=== PATIENT | male | born 1955 | race Caucasian/White ===

== ENCOUNTER 2019-02-25 14:55 | Observation (INO) | payer SELFPAY ==
--- NOTE | 2019-02-25 15:03 | EDM.PDOC ---
ED HPI GENERAL MEDICAL PROBLEM - General Chief Complaint: Respiratory Problem Stated Complaint: COUGHING UP BLOOD Time Seen by Provider: 02/25/19 14:56 Source of Information: Reports: Patient History Limitations: Reports: No Limitations - History of Present Illness INITIAL COMMENTS - FREE TEXT/NARRATIVE: History of present illness: []Patient has been coughing up blood in the morning for the last 4 days. Patient drove from [place] 2 months ago and not had any recent illnesses, chest pain, fevers or chills. He has had some episodes of shortness of breath. Patient was seen in clinic by Dr. Hamilton today and had labs and a chest x-ray done. Ordered a d-dimer which was positive. He then referred patient to the ER for further workup. Review of systems: As per history of present illness and below otherwise all systems reviewed and negative. Past medical history: As per history of present illness and as reviewed below otherwise noncontributory. Surgical history: As per history of present illness and as reviewed below otherwise noncontributory. Social history: No reported history of drug or alcohol abuse. Family history: As per history of present illness and as reviewed below otherwise noncontributory. Physical exam: General: Well developed, well nourished in NAD HEENT: Atraumatic, normocephalic, pupils reactive, negative for conjunctival pallor or scleral icterus, mucous membranes moist, throat clear, neck supple, nontender, trachea midline. Lungs: Clear to auscultation, breath sounds equal bilaterally, chest nontender. Heart: S1S2, regular, negative for clicks, rubs, or JVD. Abdomen: NABS, Soft, nondistended, nontender. Negative for masses or hepatosplenomegaly. Negative for costovertebral tenderness. Pelvis: Stable nontender. Genitourinary: Deferred. Rectal: Deferred. Extremities: Atraumatic, negative for cords or calf pain. Neurovascular unremarkable. Neuro: Awake, alert, oriented. Cranial nerves II through XII unremarkable. Cerebellum unremarkable. Motor and sensory unremarkable throughout. Exam nonfocal. Skin:warm and dry Diagnostics: Vital signs stable, CT angiogram of chest Therapeutics: Hydrated normal saline ED Course: Consulted Dr. Graham hospitalist mergers and acquisitions associate who initially recommended Lovenox and he will admit as observation. Dr. mclean to come to the ER and evaluate patient at bedside and decided to send him home on all Eliquis Impression: Pulmonary embolus right side with no pleural effusion and incidental cholelithiasis Prescriptions: Eliquis Plan: Follow-up PMD Definitive disposition and diagnosis as appropriate pending reevaluation and review of above. - Related Data Allergies Allergy/AdvReac Type Severity Reaction Status Date / Time No Known Allergies Allergy Verified 02/25/19 15:03 Home Meds: Home Meds Acyclovir [Zovirax] 1 tab PO ASDIRECTED PRN 06/13/14 [History] Gemfibrozil [Lopid] 600 mg PO DAILY 06/13/14 [History] Omeprazole [priLOSEC OTC] 20 mg PO BID 06/13/14 [History] Simvastatin [Zocor] 80 mg PO DAILY 06/13/14 [History] Apixaban [Eliquis] 5 mg PO BID #60 tablet 02/25/19 [Rx] ED ROS GENERAL - Review of Systems Review Of Systems: ROS reveals no pertinent complaints other than HPI. ED EXAM, GENERAL - Physical Exam Exam: See Below Course - Vital Signs Last Recorded V/S: Last Vital Signs Temp 97.2 F 02/25/19 15:03 Pulse 79 02/25/19 17:41 Resp 18 02/25/19 15:03 BP 150/89 H 02/25/19 17:41 Pulse Ox 96 02/25/19 17:41 - Orders/Labs/Meds Orders: Active Orders 24 hr Category Date Time Status Patient Status [ADT] Stat ADT 02/25/19 16:34 Active Sodium Chloride 0.9% [Saline Flush] Med 02/25/19 15:10 Active 10 ml FLUSH ASDIRECTED PRN Sodium Chloride 0.9% [Saline Flush] Med 02/25/19 15:10 Active 2.5 ml FLUSH ASDIRECTED PRN Saline Lock Insert [OM.PC] Stat Oth 02/25/19 15:10 Ordered Medication Orders Acetaminophen (Tylenol) 650 mg PO Q4H PRN PRN Reason: Pain (Mild 1-3)/fever Acyclovir (Zovirax) 200 mg PO ASDIRECTED PRN PRN Reason: Inflammation Albuterol/Ipratropium (Duoneb 3.0-0.5 Mg/3 Ml) 3 ml NEB Q4HRRT PRN PRN Reason: Shortness Of Breath/wheezing Docusate Sodium (Colace) 100 mg PO BID PRN PRN Reason: Constipation Enoxaparin Sodium (Lovenox) 75 mg 1 mg/kg (75 mg) SUBCUT BID BLU Non-Formulary Medication (Omeprazole [Prilosec Otc]) 20 mg PO BID BLU Non-Formulary Medication (Simvastatin [Zocor]) 80 mg PO DAILY BLU Ondansetron HCl (Zofran Odt) 4 mg PO Q6H PRN PRN Reason: nausea, able to take PO Oxycodone HCl (Oxycodone) 5 mg PO Q4H PRN PRN Reason: Pain (moderate 4-6) Sodium Chloride (Saline Flush) 10 ml FLUSH ASDIRECTED PRN PRN Reason: Keep Vein Open Sodium Chloride (Saline Flush) 2.5 ml FLUSH ASDIRECTED PRN PRN Reason: Keep Vein Open Temazepam (Restoril) 15 mg PO BEDTIME PRN PRN Reason: Sleep Meds: Medications Generic Name Dose Route Start Last Admin Trade Name Freq PRN Reason Stop Dose Admin Acetaminophen 650 mg 02/25/19 16:53 Tylenol PO Q4H PRN Pain (Mild 1-3)/fever Acyclovir 200 mg 02/25/19 16:57 Zovirax PO ASDIRECTED PRN Inflammation Albuterol/Ipratropium 3 ml 02/25/19 16:53 Duoneb 3.0-0.5 Mg/3 Ml NEB Q4HRRT PRN Shortness Of Breath/wheezing Docusate Sodium 100 mg 02/25/19 16:53 Colace PO BID PRN Constipation Enoxaparin Sodium 75 mg 02/25/19 21:00 Lovenox 1 mg/kg (75 mg) SUBCUT BID BLU Non-Formulary Medication 20 mg 02/25/19 21:00 Omeprazole [Prilosec Otc] PO BID BLU Non-Formulary Medication 80 mg 02/26/19 09:00 Simvastatin [Zocor] PO DAILY BLU Ondansetron HCl 4 mg 02/25/19 16:53 Zofran Odt PO Q6H PRN nausea, able to take PO Oxycodone HCl 5 mg 02/25/19 16:53 Oxycodone PO Q4H PRN Pain (moderate 4-6) Sodium Chloride 10 ml 02/25/19 15:10 Saline Flush FLUSH ASDIRECTED PRN Keep Vein Open Sodium Chloride 2.5 ml 02/25/19 15:10 Saline Flush FLUSH ASDIRECTED PRN Keep Vein Open Temazepam 15 mg 02/25/19 16:53 Restoril PO BEDTIME PRN Sleep Discontinued Medications Generic Name Dose Route Start Last Admin Trade Name Freq PRN Reason Stop Dose Admin Enoxaparin Sodium 73 mg 02/25/19 16:35 02/25/19 16:44 Lovenox SUBCUT 02/25/19 16:36 73 mg ONETIME ONE Administration Sodium Chloride 1,000 mls @ 999 mls/hr 02/25/19 15:13 02/25/19 16:04 Normal Saline IV 02/25/19 16:13 999 mls/hr .Bolus ONE Administration Iopamidol 50 ml 02/25/19 15:56 02/25/19 15:57 Isovue Multipack-370 (76%) IVPUSH 02/25/19 15:57 50 ml ONETIME ONE Administration Departure - Departure Time of Disposition: 16:37 Disposition: Home, Self-Care 01 Condition: Good Clinical Impression: Pulmonary embolus Qualifiers: Pulmonary embolism type: unspecified Chronicity: unspecified Acute cor pulmonale presence: without acute cor pulmonale Qualified Code(s): I26.99 - Other pulmonary embolism without acute cor pulmonale - Discharge Information *PRESCRIPTION DRUG MONITORING PROGRAM REVIEWED*: No *COPY OF PRESCRIPTION DRUG MONITORING REPORT IN PATIENT DALY: No - My Orders Last 24 Hours: My Active Orders 02/25/19 15:10 Sodium Chloride 0.9% [Saline Flush] 10 ml FLUSH ASDIRECTED PRN Sodium Chloride 0.9% [Saline Flush] 2.5 ml FLUSH ASDIRECTED PRN Saline Lock Insert [OM.PC] Stat 02/25/19 16:34 Patient Status [ADT] Stat - Assessment/Plan Last 24 Hours: My Active Orders 02/25/19 15:10 Sodium Chloride 0.9% [Saline Flush] 10 ml FLUSH ASDIRECTED PRN Sodium Chloride 0.9% [Saline Flush] 2.5 ml FLUSH ASDIRECTED PRN Saline Lock Insert [OM.PC] Stat 02/25/19 16:34 Patient Status [ADT] Stat
[2019-02-25] MEDS ORDERED: Sodium Chloride 0.9% 2.5 ML Syringe FLUSH PRN (15:10)
[2019-02-25] MEDS ORDERED: Sodium Chloride 0.9% 10 ML Syringe FLUSH PRN (15:10)
[2019-02-25] MEDS ORDERED: Sodium Chloride 0.9% 1,000 ML IV ONE (15:13)
[2019-02-25] MEDS ORDERED: Iopamidol 755 MG/ML 500 ML Multipack Bottle IVPUSH ONE (15:56)
--- NOTE | 2019-02-25 16:15 | CT ---
EXAMINATION: CTA chest HISTORY: Pain COMPARISON: None TECHNIQUE: Axial CT imaging obtained through the chest following the administration of 50 mL of Isovue-370 left antecubital fossa. Coronal and sagittal reconstructions obtained. FINDINGS: Small right pleural effusion. There is a small area of consolidation within the right lung base. Several small segmental pulmonary emboli noted within the right lower and right upper lobes. The heart is normal in size without a pericardial effusion. The thoracic aorta is normal in caliber. Coronary artery calcifications are noted. No mediastinal, hilar, or axillary lymphadenopathy. Central airways are clear. Cholelithiasis. Visualized osseous structures appear normal. IMPRESSION: 1. Several small segmental right-sided pulmonary emboli with consolidation within the right lung base which may represent a small infarct. 2. Small right pleural effusion. 3. Cholelithiasis.
[2019-02-25] MEDS ORDERED: Enoxaparin 100 MG/1 ML Syringe SUBCUT ONE (16:35)
[2019-02-25] MEDS ORDERED: Acetaminophen 325 MG Tab PO PRN (16:53)
[2019-02-25] MEDS ORDERED: Albuterol/Ipratropium 3.0-0.5 MG/3 ML Neb Soln NEB PRN (16:53)
[2019-02-25] MEDS ORDERED: oxyCODONE 5 MG Tab PO PRN (16:53)
[2019-02-25] MEDS ORDERED: Docusate Sodium 100 MG Cap PO PRN (16:53)
[2019-02-25] MEDS ORDERED: Temazepam 15 MG Cap PO PRN (16:53)
[2019-02-25] MEDS ORDERED: Ondansetron 4 MG Tab.DIS PO PRN (16:53)
[2019-02-25] MEDS ORDERED: Acyclovir 200 MG Cap PO PRN (16:57)
--- NOTE | 2019-02-25 17:01 | PCM.HP ---
H&P History of Present Illness - General Date of Service: 02/27/19 Admit Problem/Dx: Admission Diagnosis/Problem Admission Diagnosis/Problem PE, Pulmonary embolism Source of Information: Patient History Limitations: Reports: No Limitations - History of Present Illness Initial Comments - Free Text/Narative: The patient is a 63-year-old gentleman who had presented to his primary care physician's office concern for coughing up blood. The patient was seen and evaluated in the emergency department. The patient apparently had a elevated d- dimer and that was concern for pulmonary emboli. The patient has denied any shortness of breath. No recent travel. No fever or chills. The patient has been in his usual state of health. He is also wanting to go home. CT scan obtained on February 25, 2019 showed several small segmental right-sided pulmonary emboli with consolidation consistent with small infarct. Onset of Symptoms: Reports: Gradual Duration of Symptoms: Reports: Day(s): Location: Reports: Chest Severity: Mild Improves with: Reports: None Worsens with: Reports: None - Related Data Allergies/Adverse Reactions: Allergies Allergy/AdvReac Type Severity Reaction Status Date / Time No Known Allergies Allergy Verified 02/25/19 15:03 Home Medications: Home Meds Acyclovir [Zovirax] 1 tab PO ASDIRECTED PRN 06/13/14 [History] Gemfibrozil [Lopid] 600 mg PO DAILY 06/13/14 [History] Omeprazole [priLOSEC OTC] 20 mg PO BID 06/13/14 [History] Simvastatin [Zocor] 80 mg PO DAILY 06/13/14 [History] Apixaban [Eliquis] 5 mg PO BID #60 tablet 02/25/19 [Rx] Past Medical History HEENT History: Reports: None Cardiovascular History: Reports: High Cholesterol Respiratory History: Reports: None Gastrointestinal History: Reports: Hiatal Hernia Genitourinary History: Reports: None Musculoskeletal History: Reports: None Neurological History: Reports: None Psychiatric History: Reports: None Endocrine/Metabolic History: Reports: None Hematologic History: Reports: None Immunologic History: Reports: None Oncologic (Cancer) History: Reports: None Dermatologic History: Reports: None - Infectious Disease History Infectious Disease History: Reports: Hepatitis C - Past Surgical History Head Surgeries/Procedures: Reports: None HEENT Surgical History: Reports: None Cardiovascular Surgical History: Reports: None Respiratory Surgical History: Reports: None GI Surgical History: Reports: None Male Surgical History: Reports: None Endocrine Surgical History: Reports: None Neurological Surgical History: Reports: None Musculoskeletal Surgical History: Reports: None Oncologic Surgical History: Reports: None Dermatological Surgical History: Reports: None Social & Family History - Family History Family Medical History: Noncontributory - Tobacco Use Smoking Status *Q: Never Smoker Second Hand Smoke Exposure: No - Caffeine Use Caffeine Use: Reports: None - Recreational Drug Use Recreational Drug Use: No - Living Situation & Occupation Living situation: Reports: Occupation: Employed H&P Review of Systems - Review of Systems: Review Of Systems: See Below General: Reports: No Symptoms HEENT: Reports: No Symptoms Pulmonary: Reports: Hemoptysis Cardiovascular: Reports: No Symptoms Gastrointestinal: Reports: No Symptoms Genitourinary: Reports: No Symptoms Musculoskeletal: Reports: No Symptoms Skin: Reports: No Symptoms Psychiatric: Reports: No Symptoms Neurological: Reports: No Symptoms Hematologic/Lymphatic: Reports: No Symptoms Immunologic: Reports: No Symptoms Exam - Exam Exam: See Below - Vital Signs Vital Signs: Last Vital Signs Temp 36.2 C 02/25/19 15:03 Pulse 78 02/25/19 16:28 Resp 18 02/25/19 15:03 BP 140/83 02/25/19 16:28 Pulse Ox 95 02/25/19 16:28 Weight: 73.4 kg - Exam Quality Assessment: No: Supplemental Oxygen General: Alert, Oriented, Cooperative HEENT: Conjunctiva Clear, EACs Clear, EOMI, Mucosa Moist & [place], Pupils Equal, PERRLA Neck: Supple, Trachea Midline Lungs: Clear to Auscultation, Normal Respiratory Effort Cardiovascular: Regular Rate, Regular Rhythm GI/Abdominal Exam: Normal Bowel Sounds, Soft, Non-Tender, No Distention Back Exam: Normal Inspection, Full Range of Motion Extremities: Normal Inspection, Normal Range of Motion, No Pedal Edema Skin: Warm, Dry, Intact Neurological: Cranial Nerves Intact, Normal Gait Neuro Extensive - Mental Status: Alert, Oriented x3 Psychiatric: Alert, Normal Affect, Normal Mood - Problem List (1) Pulmonary embolus SNOMED Code(s): 78014030 ICD Code: I26.99 - OTHER PULMONARY EMBOLISM WITHOUT ACUTE COR PULMONALE Status: Acute Priority: High Qualifiers: Pulmonary embolism type: unspecified Chronicity: acute Acute cor pulmonale presence: without acute cor pulmonale Qualified Code(s): I26.99 - Other pulmonary embolism without acute cor pulmonale Problem List Initiated/Reviewed/Updated: Yes Orders Last 24hrs: Active Orders 24 hr Category Date Time Status Patient Status [ADT] Stat ADT 02/25/19 16:34 Active Cardiac Monitoring [RC] CONTINUOUS Care 02/25/19 16:54 Active Oxygen Therapy [RC] PRN Care 02/25/19 16:53 Active RT Aerosol Therapy [RC] ASDIRECTED Care 02/25/19 16:56 Active Up With Assistance [RC] ASDIRECTED Care 02/25/19 16:53 Active VTE/DVT Education [RC] PER UNIT ROUTINE Care 02/25/19 16:53 Active Vital Signs [RC] Q4H Care 02/25/19 16:53 Active Heart Healthy Diet [DIET] Diet 02/25/19 Breakfast Active Acetaminophen [Tylenol] Med 02/25/19 16:53 Active 650 mg PO Q4H PRN Acyclovir [Zovirax] Med 02/25/19 16:57 Active 200 mg PO ASDIRECTED PRN Albuterol/Ipratropium [DuoNeb 3.0-0.5 MG/3 ML] Med 02/25/19 16:53 Active 3 ml NEB Q4HRRT PRN Docusate Sodium [Colace] Med 02/25/19 16:53 Active 100 mg PO BID PRN Enoxaparin [Lovenox] Med 02/25/19 21:00 Active 75 mg SUBCUT BID Omeprazole [priLOSEC OTC] Med 02/25/19 21:00 Active 20 mg PO BID Ondansetron [Zofran ODT] Med 02/25/19 16:53 Active 4 mg PO Q6H PRN Simvastatin [Zocor] Med 02/26/19 09:00 Active 80 mg PO DAILY Sodium Chloride 0.9% [Saline Flush] Med 02/25/19 15:10 Active 10 ml FLUSH ASDIRECTED PRN Sodium Chloride 0.9% [Saline Flush] Med 02/25/19 15:10 Active 2.5 ml FLUSH ASDIRECTED PRN Temazepam [Restoril] Med 02/25/19 16:53 Active 15 mg PO BEDTIME PRN oxyCODONE Med 02/25/19 16:53 Active 5 mg PO Q4H PRN Saline Lock Insert [OM.PC] Stat Oth 02/25/19 15:10 Ordered Resuscitation Status Routine Resus Stat 02/25/19 16:53 Ordered Medication Orders Acetaminophen (Tylenol) 650 mg PO Q4H PRN PRN Reason: Pain (Mild 1-3)/fever Acyclovir (Zovirax) 200 mg PO ASDIRECTED PRN PRN Reason: Inflammation Albuterol/Ipratropium (Duoneb 3.0-0.5 Mg/3 Ml) 3 ml NEB Q4HRRT PRN PRN Reason: Shortness Of Breath/wheezing Docusate Sodium (Colace) 100 mg PO BID PRN PRN Reason: Constipation Enoxaparin Sodium (Lovenox) 75 mg 1 mg/kg (75 mg) SUBCUT BID BLU Non-Formulary Medication (Omeprazole [Prilosec Otc]) 20 mg PO BID BLU Non-Formulary Medication (Simvastatin [Zocor]) 80 mg PO DAILY BLU Ondansetron HCl (Zofran Odt) 4 mg PO Q6H PRN PRN Reason: nausea, able to take PO Oxycodone HCl (Oxycodone) 5 mg PO Q4H PRN PRN Reason: Pain (moderate 4-6) Sodium Chloride (Saline Flush) 10 ml FLUSH ASDIRECTED PRN PRN Reason: Keep Vein Open Sodium Chloride (Saline Flush) 2.5 ml FLUSH ASDIRECTED PRN PRN Reason: Keep Vein Open Temazepam (Restoril) 15 mg PO BEDTIME PRN PRN Reason: Sleep Assessment/Plan Comment:: The patient is a 63-year-old gentleman who was evaluated in the emergency department and noted to have on CT scan small segmental PE on right side. The patient also was noted to have a consolidation consistent with infarct which would account for his hemoptysis. A long discussion was held with the patient with regards to hospital admission, Lovenox treatment, Coumadin and use of Eliquis. The patient was hemodynamically stable and was recommended to be discharged from the emergency room and had been given a prescription for Eliquis. The patient was recommended to take 5 mg by mouth twice a day. The patient also has been recommended to follow-up with his primary care physician. The patient has been recommended to continue with his diet as tolerated. He is also to have activity as tolerated. He has been discharged from the emergency department hemodynamically stable with the recommendations listed above. This history and physical will also function as a discharge summary.
[2019-02-25] MEDS ORDERED: Non-Formulary Medication 1 Each (Omeprazole [Prilosec Otc] 20 MG) PO SCH (21:00)
[2019-02-25] MEDS ORDERED: Enoxaparin 100 MG/1 ML Syringe SUBCUT SCH (21:00)
[2019-02-26] MEDS ORDERED: Non-Formulary Medication 1 Each (Simvastatin [Zocor] 80 MG) PO SCH (09:00)
== END 2019-02-25 18:10 | disposition home or self-care (01) ==
LOC: MW.ED 14:55 → MW.MS 16:49
PROVIDERS: ADMIT Internal Medicine; ATTEND Internal Medicine
DX: I26.99 Other pulmonary embolism without acute cor pulmonale (principal); J18.1 Lobar pneumonia, unspecified organism; J90 Pleural effusion, not elsewhere classified; E78.00 Pure hypercholesterolemia, unspecified; K80.20 Calculus of gallbladder without cholecystitis without obstruction; Z79.01 Long term (current) use of anticoagulants; Z79.899 Other long term (current) drug therapy
CPT/HCPCS: 71275; 96360; 96372; 99285; J1650; J7040; Q9967; 99283